=== PATIENT | male | born 1990 ===

== ENCOUNTER 2018-07-29 22:20 | Emergency (ER) | payer BC, OTHER ==
[2018-07-29 22:37] VITALS: TEMP 98.7
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
[2018-07-29] MEDS ORDERED: Tdap Vaccine 0.5 ml Vial (10-64 yrs) IM ONE (23:38)
[2018-07-29] MEDS: Lidocaine 1% Inj (20ml) IJ ONE (23:39)
[2018-07-29] MEDS: Tdap Vaccine 0.5 ml Vial (10-64 yrs) IM ONE (23:40)
[2018-07-29] MEDS ORDERED: Lidocaine 1% Inj (20ml) ONE (23:40)
[2018-07-30 00:31] VITALS: BP 137/89; PULSE 90; RESP 18
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
[2018-08-01 00:43] VITALS: O2SAT 100
== END 2018-07-30 00:26 | disposition home or self-care (01) ==
LOC: H.ER 22:20
DX: S61.411A Laceration without foreign body of right hand, initial encounter (principal); W22.8XXA Striking against or struck by other objects, initial encounter; Y92.89 Other specified places as the place of occurrence of the external cause; E03.9 Hypothyroidism, unspecified
CPT/HCPCS: 12001; 73130; 90471; 90715; 96372; 99283; J1885

== ENCOUNTER 2018-08-01 12:45 | Inpatient (IN) | payer BC, OTHER ==
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
[2018-08-01] MEDS ORDERED: Piperacillin/Tazobact 3.375 GM in Sodium Chloride 0.9% 100 ML IVPB STA (14:58)
[2018-08-01 15:03] LABS: BASO % 0.6 % (0.0-2.0); EOS # 0.1 K/uL (0.0-0.7); EOS % 1.2 % (0.0-4.0); HEMOGLOBIN 13.7 g/dL (12.0-18.0); LYMPH # 1.2 K/uL (1.0-4.3); LYMPH % 15.4 % (20.0-40.0); MEAN CELL VOLUME 87.8 fl (80.0-94.0); MEAN CORPUSCULAR HEMOGLOBIN 29.1 pg (27.0-31.0); MEAN CORPUSCULAR HGB CONC 33.1 g/dL (33.0-37.0); MEAN PLATELET VOLUME 9.6 fl (7.2-11.7); MONO # 0.7 K/uL (0.0-0.8); MONO % 8.7 % (0.0-10.0); NEUT # 5.8 K/uL (1.8-7.0); NEUT % 74.1 % (50.0-75.0); RBC 4.7 Mil/uL (4.40-5.90); RED CELL DISTRIBUTION WIDTH 14.2 % (11.5-14.5); WHITE BLOOD COUNT 7.9 K/uL (4.8-10.8)
[2018-08-01 15:12] LABS: BLOOD UREA NITROGEN 9 mg/dl (9-20); CALCIUM 9.1 mg/dL (8.4-10.2); GFR NON-AFRICAN AMERICAN > 60
[2018-08-01] MEDS ORDERED: Piperacillin/Tazobact 3.375 gm Inj IVPB ONE (15:59)
[2018-08-01] MEDS ORDERED: Vancomycin 1 g Inj ONE (17:30)
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
[2018-08-01 19:50] VITALS: BMI 40.1
[2018-08-01] MEDS ORDERED: Piperacillin/Tazobact 3.375 GM in Sodium Chloride 0.9% 100 ML IVPB SCH (22:15)
[2018-08-02] MEDS: Sodium Chloride 0.9% 1,000 ML IV SCH ×2 (00:57→04:45)
[2018-08-02] MEDS: Piperacillin/Tazobact 3.375 GM in Sodium Chloride 0.9% 100 ML IVPB SCH ×3 (01:04→17:13)
[2018-08-02] MEDS: Enoxaparin 40 mg Syringe SC SCH ×2 (09:02→17:12)
[2018-08-02] MEDS: Multivitamin With Minerals Tab PO SCH (09:02)
[2018-08-02] MEDS ORDERED: Povidone Iodine Topical 10% Sol ONE (09:49)
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
--- NOTE | 2018-08-02 11:55 | CT ---
Date of service: 08/02/2018 PROCEDURE: CT right upper extremity HISTORY: CT hand and wrist without contrast COMPARISON: 2018. X-rays right hand TECHNIQUE: 1.25 mm axial acquisition and display. Coronal and sagittal reconstructions. Radiation dosimetry DLP (mGy-cm) 270.82. FINDINGS: Redemonstration fracture proximal aspect right 5th metacarpal. The fracture is comminuted. The fracture does not extend to the articular surface. Soft tissue swelling attests to the acuity of the fracture. The fracture displays 40 of palm are angulation. IMPRESSION: Acute fracture proximal right 5th metacarpal as described above.
[2018-08-02] MEDS ORDERED: Bacitracin Ointment 30 GM TUBE ONE (12:44)
[2018-08-02] MEDS ORDERED: Succinylcholine Chloride 20 mg/ml Syr (5 ml) IV ONE (12:45)
[2018-08-02] MEDS ORDERED: Midazolam 2 MG/2 ML VIAL ONE (12:46)
[2018-08-02] MEDS ORDERED: Lidocaine 4% (Laryng-O-Jet) Kit MM ONE (12:46)
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
[2018-08-02] MEDS ORDERED: Rocuronium 10 mg/ml (5 ml) ONE (13:30)
[2018-08-02] MEDS ORDERED: Lactated Ringer's 1,000 ML IV ONE (14:00)
[2018-08-02] MEDS ORDERED: Neostigmine 1:1000 (1 mg/ml) Inj ONE (14:28)
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
[2018-08-02] MEDS ORDERED: HYDROmorphone 0.5 mg/0.5 ml ISec IVP PRN (14:57)
--- NOTE | 2018-08-02 14:59 | CP.PCM.PCO ---
Physician Communication Note - Physician Communication Note Physician Communication Note: Plan for take back to the OR on Saturday w/ Dr. Gregorio for defintive closure
--- NOTE | 2018-08-02 17:00 | RAD ---
Date of service: 08/02/2018 PROCEDURE: Fluoroscopy up to 1 hr. HISTORY: FLUOROSCOPY COMPARISON: None TECHNIQUE: Standard protocol for this study/examination. FINDINGS: Total fluoroscopic time (continuous mode) utilized during the procedure 6.8 seconds. Total exam DLP: 0.21 (mGy). IMPRESSION: Less than 1 hr fluoroscopic assistance provided during performance of the procedure.
[2018-08-02] MEDS: Acetaminophen-Codeine 300/30 mg Tab PO PRN ×2 (17:17→23:11)
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
[2018-08-02] MEDS: Lactated Ringer's 1,000 ML IV SCH (23:00)
[2018-08-03] MEDS: Piperacillin/Tazobact 3.375 GM in Sodium Chloride 0.9% 100 ML IVPB SCH ×3 (01:45→17:44)
[2018-08-03] MEDS: Lactated Ringer's 1,000 ML IV SCH ×4 (04:36→23:00)
[2018-08-03 06:55] LABS: HEMOGLOBIN 12.4 g/dL (12.0-18.0); MEAN CELL VOLUME 87.3 fl (80.0-94.0); MEAN CORPUSCULAR HEMOGLOBIN 29.6 pg (27.0-31.0); MEAN CORPUSCULAR HGB CONC 33.9 g/dL (33.0-37.0); RBC 4.2 Mil/uL (4.40-5.90); RED CELL DISTRIBUTION WIDTH 13.9 % (11.5-14.5); WHITE BLOOD COUNT 5.9 K/uL (4.8-10.8)
[2018-08-03 07:11] LABS: ALB/GLOB RATIO 1.2 (1.0-2.1); ALBUMIN 3.8 g/dL (3.5-5.0); ALT/SGPT 39 U/L (21-72); AST/SGOT 35 U/L (17-59); BLOOD UREA NITROGEN 10 mg/dl (9-20); CALCIUM 8.8 mg/dL (8.4-10.2); GFR NON-AFRICAN AMERICAN > 60
[2018-08-03] MEDS: Multivitamin With Minerals Tab PO SCH (09:32)
[2018-08-03] MEDS: Enoxaparin 40 mg Syringe SC SCH (09:32)
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
--- NOTE | 2018-08-03 12:07 | PN ---
DATE: 08/03/2018 SUBJECTIVE: The patient seen and examined. Interim events noted. Consults noted and appreciated. Orthopedic intervention noted and appreciated. The patient underwent surgery yesterday, tolerated surgery well without any complication. The patient feels better. His pain decreased, movement improved. No new complaints of chest pain or shortness of breath. PHYSICAL EXAMINATION: GENERAL: The patient is in no acute distress. VITAL SIGNS: Stable. HEART: S1 and S2, normal and regular. LUNGS: Good bilateral air exchange. ABDOMEN: Soft and nontender. EXTREMITIES: Right extremity is under surgical dressing and cast. No sign of distal neurological compromise. The patient is moving fingers much better than yesterday. Otherwise, the patient has no edema. No calf swelling. No tenderness. No acute ischemia. CENTRAL NERVOUS SYSTEM: Exam is essentially unchanged. DIAGNOSTIC DATA: Available diagnostic data reviewed. ASSESSMENT AND PLAN: Overall, the patient is improving. The patient might undergo surgery I think to follow for the fracture . Sarwat Venegas MD
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
[2018-08-03] MEDS ORDERED: Tetanus/Diphtheria Toxoids 0.5 ml Syringe IM ONE (13:37)
[2018-08-03] MEDS: Acetaminophen-Codeine 300/30 mg Tab PO PRN (20:30)
[2018-08-03 22:38] LABS: URINE BILIRUBIN NEGATIVE (NEGATIVE); URINE BLOOD NEGATIVE (NEGATIVE); URINE CLARITY CLEAR (Clear); URINE COLOR STRAW (YELLOW); URINE GLUCOSE (UA) NEG (NEGATIVE); URINE LEUKOCYTE ESTERASE NEG Leu/uL (Negative); URINE PROTEIN NEGATIVE (NEGATIVE); URINE UROBILINOGEN 0.2-1.0 mg/dL (0.2-1.0)
[2018-08-04] MEDS: Piperacillin/Tazobact 3.375 GM in Sodium Chloride 0.9% 100 ML IVPB SCH ×3 (00:04→16:07)
[2018-08-04] MEDS: Lactated Ringer's 1,000 ML IV SCH ×6 (06:14→23:00)
[2018-08-04 06:25] LABS: HEMOGLOBIN 13.8 g/dL (12.0-18.0); MEAN CELL VOLUME 86.4 fl (80.0-94.0); MEAN CORPUSCULAR HEMOGLOBIN 29.6 pg (27.0-31.0); MEAN CORPUSCULAR HGB CONC 34.3 g/dL (33.0-37.0); RBC 4.66 Mil/uL (4.40-5.90); RED CELL DISTRIBUTION WIDTH 13.7 % (11.5-14.5); WHITE BLOOD COUNT 5.5 K/uL (4.8-10.8)
[2018-08-04 06:32] LABS: PROTHROMBIN TIME 11.6 Seconds (9.8-13.1)
[2018-08-04 06:34] LABS: PARTIAL THROMBOPLASTIN TIME 34.9 Seconds (25.6-37.1)
[2018-08-04 06:40] LABS: ALB/GLOB RATIO 1.3 (1.0-2.1); ALBUMIN 4.1 g/dL (3.5-5.0); ALT/SGPT 47 U/L (21-72); AST/SGOT 37 U/L (17-59); BLOOD UREA NITROGEN 10 mg/dl (9-20); CALCIUM 9.3 mg/dL (8.4-10.2); GFR NON-AFRICAN AMERICAN > 60
--- NOTE | 2018-08-04 08:04 | CP.PCM.PCO ---
Physician Communication Note - Physician Communication Note Physician Communication Note: Patient admitted and taken to the OR by Dr. Gregorio Assessment & Plan - Assessment and Plan (Free Text) Assessment: Patient was admitted overnight Saturday and seen by me and the resident. He has a draining wound and was supposed to start on warm soapoy soaks. He was then taken to the OR [place] by Dr. Gregorio. He does nto need 2 surgeons following him for a superficial hand wound and metacarpal base fracture. Patient should follow up after discharge with Dr. Gregorio. Will cancel office visit for later this week.
[2018-08-04] MEDS ORDERED: Bacitracin Ointment 30 GM TUBE ONE ×2 (08:14→08:20)
[2018-08-04] MEDS: Multivitamin With Minerals Tab PO SCH (08:15)
[2018-08-04] MEDS ORDERED: Propofol 10 mg/ml Inj (20 ML) ONE (08:16)
[2018-08-04] MEDS ORDERED: Bupivacaine HCl 0.5% PF (30 ml) Inj ONE (08:18)
[2018-08-04] MEDS ORDERED: Lidocaine 2% Inj (20ml) ONE (08:19)
[2018-08-04] MEDS ORDERED: Lactated Ringer's 1,000 ML IV ONE ×2 (08:40→10:29)
[2018-08-04] MEDS ORDERED: Piperacillin/Tazobact 3.375 gm Inj IVPB ONE (08:45)
[2018-08-04] MEDS ORDERED: Vancomycin 1 g Inj IVPB ONE (08:55)
[2018-08-04] MEDS ORDERED: Sevoflurane - Inhalation Anesthetic Liq (250 ml) ONE (08:59)
[2018-08-04] MEDS ORDERED: ePHEDrine 50 mg/ml Inj ONE (09:20)
[2018-08-04] MEDS ORDERED: Oxycodone/Acetaminophen 5/325 mg Tab PO PRN (11:27)
[2018-08-04] MEDS: HYDROmorphone 0.5 mg/0.5 ml ISec IVP PRN ×4 (11:40→13:40)
--- NOTE | 2018-08-04 11:48 | CP.PCM.PN ---
Subjective - Date & Time of Evaluation Date of Evaluation: 08/04/18 Time of Evaluation: 08:00 - Subjective Subjective: events noted IV rx in progress Objective - Vital Signs/Intake and Output Vital Signs (last 24 hours): Temp Pulse Resp BP Pulse Ox 98.2 F 86 20 152/91 H 99 08/04/18 08:05 08/04/18 08:05 08/04/18 08:05 08/04/18 08:05 08/04/18 08:05 Intake and Output: 08/04/18 08/04/18 06:59 18:59 Intake Total 1500 Balance 1500 - Medications Medications: Current Medications Acetaminophen (Tylenol 325mg Tab) 650 mg PO Q4 PRN PRN Reason: Pain, Mild (1-3) Acetaminophen/Codeine Phosphate (Tylenol/Codeine 300 Mg/30 Mg) 1 tab PO Q6 PRN PRN Reason: Pain, moderate (4-7) Last Admin: 08/03/18 20:30 Dose: 1 tab Enoxaparin Sodium (Lovenox) 40 mg SC DAILY [facility]; Protocol Last Admin: 08/03/18 09:32 Dose: 40 mg Hydromorphone HCl (Dilaudid) 0.5 mg IVP Q5M PRN PRN Reason: Pain, moderate (4-7) Stop: 08/04/18 13:28 Vancomycin HCl 1 gm/ Sodium (Chloride) 250 mls @ 166.667 mls/hr IVPB Q12H [facility]; Protocol Last Admin: 08/04/18 06:27 Dose: 166.667 mls/hr Piperacillin Sod/Tazobactam (Sod 3.375 gm/ Sodium Chloride) 100 mls @ 100 mls/hr IVPB Q8 [facility]; Protocol Last Admin: 08/04/18 08:16 Dose: Not Given Lactated Ringer's (Lactated Ringer's) 1,000 mls @ 125 mls/hr IV .Q8H [facility] Last Admin: 08/04/18 06:30 Dose: Not Given Lactated Ringer's (Lactated Ringer's) 1,000 mls @ 100 mls/hr IV .Q10H [facility] Ketorolac Tromethamine (Toradol) 30 mg IVP ONCE PRN PRN Reason: Pain, Mild (1-3) Stop: 08/04/18 13:28 Levothyroxine Sodium (Synthroid) 25 mcg PO DAILY@0630 [facility] Morphine Sulfate (Morphine) 2 mg IVP Q4 PRN PRN Reason: Pain, severe (8-10) Multivitamins/Minerals (Therapeutic-M Tab) 1 tab PO DAILY [facility] Last Admin: 08/04/18 08:15 Dose: Not Given Ondansetron HCl (Zofran Inj) 4 mg IVP Q4 PRN PRN Reason: Nausea/Vomiting Ondansetron HCl (Zofran Inj) 4 mg IVP ONCE PRN PRN Reason: Nausea/Vomiting Stop: 08/04/18 13:29 Oxycodone/Acetaminophen (Percocet 5/325 Mg Tab) 1 tab PO Q4 PRN PRN Reason: Pain, Mild (1-3) Stop: 08/07/18 11:28 Oxycodone/Acetaminophen (Percocet 5/325 Mg Tab) 2 tab PO Q4 PRN PRN Reason: Pain, moderate (4-7) Stop: 08/07/18 11:28 Tramadol HCl (Ultram) 50 mg PO Q6 PRN PRN Reason: Pain, severe (8-10) Last Admin: 08/03/18 15:06 Dose: 50 mg - Labs Labs: 08/04/18 06:20 08/04/18 06:20 PT 11.6 Seconds (9.8-13.1) 08/04/18 06:20 INR 1.0 08/04/18 06:20 APTT 34.9 Seconds (25.6-37.1) 08/04/18 06:20 - Constitutional Appears: Well - Head Exam Head Exam: ATRAUMATIC, NORMAL INSPECTION, NORMOCEPHALIC - Eye Exam Eye Exam: EOMI, Normal appearance, PERRL Pupil Exam: NORMAL ACCOMODATION, PERRL - ENT Exam ENT Exam: Mucous Membranes Moist, Normal Exam - Neck Exam Neck Exam: Full ROM, Normal Inspection. absent: Lymphadenopathy - Respiratory Exam Respiratory Exam: Clear to Ausculation Bilateral, NORMAL BREATHING PATTERN - Cardiovascular Exam Cardiovascular Exam: REGULAR RHYTHM, +S1, +S2. absent: Murmur - GI/Abdominal Exam GI & Abdominal Exam: Soft. absent: Tenderness - Rectal Exam Rectal Exam: Deferred - Exam Exam: NORMAL INSPECTION - Extremities Exam Extremities Exam: Full ROM, Normal Capillary Refill, Normal Inspection. absent: Joint Swelling, Pedal Edema - Back Exam Back Exam: NORMAL INSPECTION - Neurological Exam Neurological Exam: Alert, Awake, CN II-XII Intact, Normal Gait, Oriented x3 - Psychiatric Exam Psychiatric exam: Normal Affect, Normal Mood - Skin Skin Exam: Dry, Intact, Normal Color, Warm Assessment and Plan (1) Hand abscess Status: Acute (2) Hand laceration Status: Acute (3) Hand pain, right Status: Acute (4) Metacarpal bone fracture Status: Acute (5) Hypothyroid Status: Acute - Assessment and Plan (Free Text) Assessment: cont iv rx for 3 weeks
--- NOTE | 2018-08-04 13:55 | PN ---
DATE: 08/04/2018 SUBJECTIVE: The patient is seen and examined. Interim events noted. Consults noted and appreciated. Orthopedic consults and intervention noted and appreciated. Case was discussed with . The patient feels okay. Pain much improved. No chest pain. No shortness of breath, able to move his fingers without any restriction. PHYSICAL EXAMINATION: GENERAL: The patient is in no acute distress. VITAL SIGNS: Stable. HEART: S1 and S2, normal and regular. LUNGS: Good bilateral air exchange. ABDOMEN: Soft, nontender. EXTREMITIES: Right upper extremity is in a cast. No sign of distal neurovascular compromise. The patient has adequate movement in fingers. No edema, no calf swelling, no tenderness. CENTRAL NERVOUS SYSTEM: Essentially unchanged. DIAGNOSTIC DATA: Available diagnostic data reviewed. His lipase level remains elevated at 8.9. On further questioning, the patient is admitted having no issue with thyroid and was seen by Endocrinology, suggested CT but has stopped any followup or medication after , removed was taking some medications before. ASSESSMENT AND PLAN: Overall, the patient also now found to have hypothyroidism. The hand injury has improved well. Plan as ordered. Sarwat Veneags MD
--- NOTE | 2018-08-04 13:58 | RAD ---
PROCEDURE: Right Hand Radiographs. HISTORY: s/p R hand 5th MCP ORIF COMPARISON: Preoperative study 08/01/2018 FINDINGS: BONES: Orthopedic hardware traverses the fracture of the proximal right 5th metacarpal. Anatomic area of interest: JOINTS: Normal. No osteoarthritic changes. SOFT TISSUES: Normal. OTHER FINDINGS: None. IMPRESSION: Satisfactory postoperative status.
--- NOTE | 2018-08-04 14:03 | RAD ---
Date of service: 08/04/2018 PROCEDURE: Fluoroscopy up to 1 hr. HISTORY: RIGHT HAND (5TH FINGER) COMPARISON: Preoperative study August 01, 2018. TECHNIQUE: Total fluoroscopic time (continuous mode) utilized during the procedure 15.6 seconds. FINDINGS: Total exam DLP: 0.49 (mGy). IMPRESSION: Less than 1 hr fluoroscopic assistance provided during performance of the procedure.
--- NOTE | 2018-08-04 14:52 | PCM.SURG1 ---
Surgeon's Initial Post Op Note - Surgeon's Notes Surgeon: Darline Liner Replacer: LULU Astorga, 2nd elvira Conner Type of Anesthesia: General Endo Anesthesia Administered By: Dr Fan Pre-Operative Diagnosis: Displaced/comminuted BASE 5th metacarpal fracture R hand. s/p I+D DISTAL dorsal aspect 5th metacarpal Operative Findings: no evidence for deep sepsis distal laceration dorsal aspect 5th metacarpal. displaced/comminuted fx base 5th metacarpal Post-Operative Diagnosis: as above Operation Performed: ORIF base 5th metacarpal fracture. capsulotomy 5th carpomcp joint. debridemet distal laceration, irrigation and primary closure. allogrft bone graft to fx. applx short arm splinpositioning of fluor/interpretation of video images Specimen/Specimens Removed: karen jackson from distal laceration which had been incised and drained saturday Estimated Blood Loss: EBL {In ML}: 5 Blood Products Given: N/A Drains Used: No Drains Post-Op Condition: Fair Date of Surgery/Procedure: 08/04/18 Time of Surgery/Procedure: 09:25 (time in room /anesthesdia indcution time 8:40)
[2018-08-04] MEDS: Morphine 5 MG/ML SYRINGE IVP PRN ×2 (15:44→21:40)
[2018-08-04] MEDS: Oxycodone/Acetaminophen 5/325 mg Tab PO PRN (18:38)
--- NOTE | 2018-08-04 20:46 | OP ---
PROCEDURE DATE: 08/01/2018 PREOPERATIVE DIAGNOSES: 1. Displaced comminuted base fifth metacarpal fracture of the right hand. 2. Status post incision and drainage distal dorsal aspect, fifth metacarpal laceration. POSTOPERATIVE DIAGNOSES: 1. Displaced comminuted base fracture fifth metacarpal, right hand. 2. Status post incision and drainage distal and dorsal aspect, fifth metacarpal laceration. OPERATIVE FINDINGS: No evidence for gross deep sepsis or distal laceration on the dorsal aspect of the fifth metacarpal, displaced comminuted fracture at the base of the fifth metacarpal, certainly far away from the laceration that the patient had had. OPERATION PERFORMED: 1. Open reduction and internal fixation at the base of fifth metacarpal fracture. 2. Capsulotomy fifth metacarpal joint. 3. Debridement at distal laceration, irrigation, and primary closure. 4. Allograft, bone graft to the fracture. 5. Application of short-arm cast. 6. Positioning of fluoroscope, interpretation of video images. SURGEON: Ata Gregorio MD NETWORK DEVELOPMENT COORDINATOR: Anisa Glaser, certified registered nursing records assistant. SECOND MEDICAL SALES ASSOCIATE: Efrain Conner PA-C TYPE OF ANESTHESIA: General endotracheal anesthesia. ADMINISTERED BY: González Fan MD SPECIMENS REMOVED: Fractured callus. Cultures obtained from the distal laceration, which had been incised and drained on Saturday. ESTIMATED BLOOD LOSS: 5 mL. BLOOD PRODUCTS: No blood products given. DRAINS: No drains. POSTOPERATIVE CONDITION: Stable. TIME IN THE ROOM: Anesthesia induction time 08:40, incision time 09:25. OPERATIVE INDICATIONS: Ricardo Chan is a 27-year-old gentleman who presented to the emergency room at [facility] on Saturday evening last. The patient was evaluated by the hand service. The patient was treated, irrigated, and closed primarily. The patient returned to the hospital on Saturday. I was called on consult. I saw the patient on Saturday, took the patient to the operating room for incision and drainage and this was accomplished with aggressive irrigation and drainage. The patient has an unstable comminuted base fifth metacarpal fracture, which needs open reduction and internal fixation. After thoroughly discussing the pros, cons, risks, and benefits of the surgical approach to the patient, the possibility of mechanical failure, infection, recurrent infection, thromboembolic disease, secondary or tertiary surgery were discussed. The patient identified as Ricardo Chan, in the supine position with all bony prominence well padded. The right upper extremity was prepped and free draped in usual fashion for upper extremity surgery. The tourniquet had been applied. After exsanguinating the limb using a 4-inch Esmarch bandage, the tourniquet which had been applied was inflated to 250 mmHg. An incision was described away from the laceration incision on the dorsal ulnar aspect of the fifth metacarpal to the area of the carpometacarpal joint. The skin incision was carried down through the skin and subcutaneous tissue. Dissection was carried out very carefully and the dorsal branch of the ulnar nerve was preserved. At this point in time, the fracture was identified. There was found to be a comminuted base. A capsulotomy of the carpometacarpal joint was accomplished and this having been accomplished, the fracture was reduced and held with provisional K-wires. The fracture was curetted and debrided of healing callus. The fracture was reduced and the T-plate mini-fragment locking set was applied to the fracture. Each sequential drill hole was drilled, sounded, and the appropriate size screws were placed. The position was found to be acceptable. Again, the capsule had been opened to make sure there was no penetration of the joint with screws and this having been accomplished, the wound was thoroughly irrigated. Primary closure of the capsulotomy was accomplished with interrupted suture. Autograft and allograft bone grafting were accomplished of the fracture. The expansion deep to the extensor tendons was closed primarily. The wound was thoroughly irrigated. Attention at this point in time was centered to the distal laceration. This laceration and wound were thoroughly irrigated. Primary closure was accomplished with interrupted Vicryl and nylon. Closure of the skin was with interrupted Vicryl and nylon as well for the laceration. Verification of position was offered on AP and lateral image intensification views, and it was found to be acceptable. OPERATIVE PROCEDURES: 1. Open reduction and internal fixation of base fifth metacarpal fracture. 2. Capsulotomy of the fifth carpometacarpal joint. 3. Debridement of distal laceration, irrigation, and primary closure. 4. Allograft and bone graft. 5. Application of short-arm splint, positioning of fluoroscope, interpretation of video images. Ata Gregorio MD [facility] # [id number]
[2018-08-05] MEDS: Oxycodone/Acetaminophen 5/325 mg Tab PO PRN ×2 (00:36→08:18)
[2018-08-05] MEDS: Piperacillin/Tazobact 3.375 GM in Sodium Chloride 0.9% 100 ML IVPB SCH ×3 (00:38→16:28)
[2018-08-05] MEDS: Morphine 5 MG/ML SYRINGE IVP PRN ×3 (05:09→20:24)
[2018-08-05] MEDS: Lactated Ringer's 1,000 ML IV SCH ×3 (05:13→08:32)
[2018-08-05 06:14] LABS: HEMOGLOBIN 13.1 g/dL (12.0-18.0); MEAN CELL VOLUME 86.6 fl (80.0-94.0); MEAN CORPUSCULAR HEMOGLOBIN 29.5 pg (27.0-31.0); RBC 4.46 Mil/uL (4.40-5.90); RED CELL DISTRIBUTION WIDTH 13.8 % (11.5-14.5)
[2018-08-05 06:32] LABS: ALBUMIN 3.7 g/dL (3.5-5.0); ALT/SGPT 44 U/L (21-72); AST/SGOT 33 U/L (17-59); BLOOD UREA NITROGEN 5 mg/dl (9-20); CALCIUM 9.1 mg/dL (8.4-10.2); GFR NON-AFRICAN AMERICAN > 60
[2018-08-05] MEDS: Levothyroxine 25 MCG TAB PO SCH (07:23)
[2018-08-05] MEDS: Multivitamin With Minerals Tab PO SCH (08:23)
--- NOTE | 2018-08-05 08:38 | CP.PCM.PN ---
Subjective - Date & Time of Evaluation Date of Evaluation: 08/05/18 Time of Evaluation: 08:30 - Subjective Subjective: Patient seen and examined at bedside. Pain well controlled. Reports mild tingling to 4th digit. Denies CP/SOB/N/fever. Objective - Vital Signs/Intake and Output Vital Signs (last 24 hours): Temp Pulse Resp BP Pulse Ox 98.3 F 92 H 20 156/93 H 95 08/05/18 08:11 08/05/18 08:11 08/05/18 08:11 08/05/18 08:11 08/05/18 08:11 - Medications Medications: Current Medications Acetaminophen (Tylenol 325mg Tab) 650 mg PO Q4 PRN PRN Reason: Pain, Mild (1-3) Acetaminophen/Codeine Phosphate (Tylenol/Codeine 300 Mg/30 Mg) 1 tab PO Q6 PRN PRN Reason: Pain, moderate (4-7) Last Admin: 08/03/18 20:30 Dose: 1 tab Enoxaparin Sodium (Lovenox) 40 mg SC DAILY [facility]; Protocol Last Admin: 08/03/18 09:32 Dose: 40 mg Vancomycin HCl 1 gm/ Sodium (Chloride) 250 mls @ 166.667 mls/hr IVPB Q12H [facility]; Protocol Last Admin: 08/05/18 05:15 Dose: 166.667 mls/hr Piperacillin Sod/Tazobactam (Sod 3.375 gm/ Sodium Chloride) 100 mls @ 100 mls/hr IVPB Q8 [facility]; Protocol Last Admin: 08/05/18 00:38 Dose: 100 mls/hr Lactated Ringer's (Lactated Ringer's) 1,000 mls @ 125 mls/hr IV .Q8H [facility] Last Admin: 08/05/18 07:01 Dose: Not Given Lactated Ringer's (Lactated Ringer's) 1,000 mls @ 100 mls/hr IV .Q10H [facility] Last Admin: 08/05/18 08:32 Dose: Not Given Levothyroxine Sodium (Synthroid) 25 mcg PO DAILY@0630 [facility] Last Admin: 08/05/18 07:23 Dose: 25 mcg Morphine Sulfate (Morphine) 2 mg IVP Q4 PRN PRN Reason: Pain, severe (8-10) Last Admin: 08/05/18 05:09 Dose: 2 mg Multivitamins/Minerals (Therapeutic-M Tab) 1 tab PO DAILY [facility] Last Admin: 08/05/18 08:23 Dose: 1 tab Ondansetron HCl (Zofran Inj) 4 mg IVP Q4 PRN PRN Reason: Nausea/Vomiting Last Admin: 08/04/18 17:46 Dose: 4 mg Oxycodone/Acetaminophen (Percocet 5/325 Mg Tab) 1 tab PO Q4 PRN PRN Reason: Pain, Mild (1-3) Stop: 08/07/18 11:28 Oxycodone/Acetaminophen (Percocet 5/325 Mg Tab) 2 tab PO Q4 PRN PRN Reason: Pain, moderate (4-7) Stop: 08/07/18 11:28 Last Admin: 08/05/18 08:18 Dose: 2 tab Tramadol HCl (Ultram) 50 mg PO Q6 PRN PRN Reason: Pain, severe (8-10) Last Admin: 08/03/18 15:06 Dose: 50 mg - Labs Labs: 08/05/18 06:00 08/05/18 06:00 PT 11.6 Seconds (9.8-13.1) 08/04/18 06:20 INR 1.0 08/04/18 06:20 APTT 34.9 Seconds (25.6-37.1) 08/04/18 06:20 - Extremities Exam Additional comments: R hand: short arm splint intact sensation MN/UN/RN intact motor MN/UN/RN intact 2 sec cap refill all fingers Assessment and Plan (1) Fracture of fifth metacarpal bone Assessment & Plan: POD #1 s/p 5th MCP fx ORIF and distal wound I&D -Strict elevation of R hand -IV abx as per Dr. Monsivais, Dr. Gregorio recommends 3 weeks of IV abx -keep immobilized in short arm splint, NWB RUE -ASA 81 mg BID -orthopedically clear for d/w to home today -f/u in office within 7-10 days -above d/w Dr. Gregorio in agreement Status: Acute
--- NOTE | 2018-08-05 08:39 | CP.PCM.PN ---
Subjective - Date & Time of Evaluation Date of Evaluation: 08/05/18 Time of Evaluation: 08:15 - Subjective Subjective: S- Pt markedly imporved/ no complaints today/ sometingling in 4th(?/5th fingers Objective - Vital Signs/Intake and Output Vital Signs (last 24 hours): Temp Pulse Resp BP Pulse Ox 98.3 F 92 H 20 156/93 H 95 08/05/18 08:11 08/05/18 08:11 08/05/18 08:11 08/05/18 08:11 08/05/18 08:11 - Medications Medications: Current Medications Acetaminophen (Tylenol 325mg Tab) 650 mg PO Q4 PRN PRN Reason: Pain, Mild (1-3) Acetaminophen/Codeine Phosphate (Tylenol/Codeine 300 Mg/30 Mg) 1 tab PO Q6 PRN PRN Reason: Pain, moderate (4-7) Last Admin: 08/03/18 20:30 Dose: 1 tab Enoxaparin Sodium (Lovenox) 40 mg SC DAILY [facility]; Protocol Last Admin: 08/03/18 09:32 Dose: 40 mg Vancomycin HCl 1 gm/ Sodium (Chloride) 250 mls @ 166.667 mls/hr IVPB Q12H [facility]; Protocol Last Admin: 08/05/18 05:15 Dose: 166.667 mls/hr Piperacillin Sod/Tazobactam (Sod 3.375 gm/ Sodium Chloride) 100 mls @ 100 mls/hr IVPB Q8 [facility]; Protocol Last Admin: 08/05/18 00:38 Dose: 100 mls/hr Lactated Ringer's (Lactated Ringer's) 1,000 mls @ 125 mls/hr IV .Q8H [facility] Last Admin: 08/05/18 07:01 Dose: Not Given Lactated Ringer's (Lactated Ringer's) 1,000 mls @ 100 mls/hr IV .Q10H [facility] Last Admin: 08/05/18 08:32 Dose: Not Given Levothyroxine Sodium (Synthroid) 25 mcg PO DAILY@0630 [facility] Last Admin: 08/05/18 07:23 Dose: 25 mcg Morphine Sulfate (Morphine) 2 mg IVP Q4 PRN PRN Reason: Pain, severe (8-10) Last Admin: 08/05/18 05:09 Dose: 2 mg Multivitamins/Minerals (Therapeutic-M Tab) 1 tab PO DAILY [facility] Last Admin: 08/05/18 08:23 Dose: 1 tab Ondansetron HCl (Zofran Inj) 4 mg IVP Q4 PRN PRN Reason: Nausea/Vomiting Last Admin: 08/04/18 17:46 Dose: 4 mg Oxycodone/Acetaminophen (Percocet 5/325 Mg Tab) 1 tab PO Q4 PRN PRN Reason: Pain, Mild (1-3) Stop: 08/07/18 11:28 Oxycodone/Acetaminophen (Percocet 5/325 Mg Tab) 2 tab PO Q4 PRN PRN Reason: Pain, moderate (4-7) Stop: 08/07/18 11:28 Last Admin: 08/05/18 08:18 Dose: 2 tab Tramadol HCl (Ultram) 50 mg PO Q6 PRN PRN Reason: Pain, severe (8-10) Last Admin: 08/03/18 15:06 Dose: 50 mg - Labs Labs: 08/05/18 06:00 08/05/18 06:00 PT 11.6 Seconds (9.8-13.1) 08/04/18 06:20 INR 1.0 08/04/18 06:20 APTT 34.9 Seconds (25.6-37.1) 08/04/18 06:20 - Additional Findings Additional findings: Objectivge systemic- wnl no signs of local or systemic sepsis Musculoskeletal stance/gait- defrred split R upper ext intact N/V intact no gross p[rogressive deficits post op xrays- reval acceptable construct position Assessment and Plan - Assessment and Plan (Free Text) Assessment: A- s/p ORIF base 5th metacarpal fx P- d/c on IV abios as per DR Gonzalez- RTOP SURGICAL ASST x 1 wk
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
[2018-08-05] MEDS ORDERED: Lidocaine Hydrochloride 5 ML INJ ONE (10:25)
--- NOTE | 2018-08-05 11:35 | PCM.SURG1 ---
Surgeon's Initial Post Op Note - Surgeon's Notes Surgeon: Abigail Bait Packer: None Type of Anesthesia: Local Pre-Operative Diagnosis: Infection Operative Findings: Patent right basilic vein Post-Operative Diagnosis: Infection Operation Performed: Right basilic vein 45cm SL 4F PICC placed with the tip in the RA Specimen/Specimens Removed: None Estimated Blood Loss: EBL {In ML}: 1 Date of Surgery/Procedure: 08/05/18 Time of Surgery/Procedure: 11:00
[2018-08-05] MEDS: Acetaminophen-Codeine 300/30 mg Tab PO PRN (11:43)
--- NOTE | 2018-08-05 12:12 | CP.PCM.PN ---
Subjective - Date & Time of Evaluation Date of Evaluation: 08/05/18 Time of Evaluation: 07:00 - Subjective Subjective: afeb s/p ORIF right hand picc in place Objective - Vital Signs/Intake and Output Vital Signs (last 24 hours): Temp Pulse Resp BP Pulse Ox 98.6 F 80 16 156/82 H 99 08/05/18 11:15 08/05/18 11:15 08/05/18 11:15 08/05/18 11:15 08/05/18 11:15 - Medications Medications: Current Medications Acetaminophen (Tylenol 325mg Tab) 650 mg PO Q4 PRN PRN Reason: Pain, Mild (1-3) Acetaminophen/Codeine Phosphate (Tylenol/Codeine 300 Mg/30 Mg) 1 tab PO Q6 PRN PRN Reason: Pain, moderate (4-7) Last Admin: 08/05/18 11:43 Dose: 1 tab Enoxaparin Sodium (Lovenox) 40 mg SC DAILY [facility]; Protocol Last Admin: 08/03/18 09:32 Dose: 40 mg Vancomycin HCl 1 gm/ Sodium (Chloride) 250 mls @ 166.667 mls/hr IVPB Q12H [facility]; Protocol Last Admin: 08/05/18 05:15 Dose: 166.667 mls/hr Piperacillin Sod/Tazobactam (Sod 3.375 gm/ Sodium Chloride) 100 mls @ 100 mls/hr IVPB Q8 [facility]; Protocol Last Admin: 08/05/18 11:31 Dose: 100 mls/hr Levothyroxine Sodium (Synthroid) 25 mcg PO DAILY@0630 [facility] Last Admin: 08/05/18 07:23 Dose: 25 mcg Morphine Sulfate (Morphine) 2 mg IVP Q4 PRN PRN Reason: Pain, severe (8-10) Last Admin: 08/05/18 05:09 Dose: 2 mg Multivitamins/Minerals (Therapeutic-M Tab) 1 tab PO DAILY [facility] Last Admin: 08/05/18 08:23 Dose: 1 tab Ondansetron HCl (Zofran Inj) 4 mg IVP Q4 PRN PRN Reason: Nausea/Vomiting Last Admin: 08/04/18 17:46 Dose: 4 mg Oxycodone/Acetaminophen (Percocet 5/325 Mg Tab) 1 tab PO Q4 PRN PRN Reason: Pain, Mild (1-3) Stop: 08/07/18 11:28 Oxycodone/Acetaminophen (Percocet 5/325 Mg Tab) 2 tab PO Q4 PRN PRN Reason: Pain, moderate (4-7) Stop: 08/07/18 11:28 Last Admin: 08/05/18 08:18 Dose: 2 tab Tramadol HCl (Ultram) 50 mg PO Q6 PRN PRN Reason: Pain, severe (8-10) Last Admin: 08/03/18 15:06 Dose: 50 mg - Labs Labs: 08/05/18 06:00 08/05/18 06:00 PT 11.6 Seconds (9.8-13.1) 08/04/18 06:20 INR 1.0 08/04/18 06:20 APTT 34.9 Seconds (25.6-37.1) 08/04/18 06:20 - Constitutional Appears: Non-toxic, Chronically Ill - Head Exam Head Exam: NORMOCEPHALIC - Eye Exam Eye Exam: absent: Scleral icterus - ENT Exam ENT Exam: Mucous Membranes Dry - Neck Exam Neck Exam: absent: Lymphadenopathy - Respiratory Exam Respiratory Exam: Decreased Breath Sounds - Cardiovascular Exam Cardiovascular Exam: REGULAR RHYTHM - GI/Abdominal Exam GI & Abdominal Exam: Distended - Rectal Exam Rectal Exam: Deferred - Exam Exam: NORMAL INSPECTION - Extremities Exam Extremities Exam: absent: Pedal Edema - Back Exam Back Exam: absent: CVA tenderness (L), CVA tenderness (R), paraspinal tenderness - Neurological Exam Neurological Exam: Alert, Awake, CN II-XII Intact, Oriented x3 Neuro motor strength exam: Left Upper Extremity: 5, Right Upper Extremity: 5, Left Lower Extremity: 5, Right Lower Extremity: 5 - Psychiatric Exam Psychiatric exam: Normal Mood - Skin Skin Exam: Dry Additional comments: hand in cast Assessment and Plan (1) Hand abscess Status: Acute (2) Hand laceration Status: Acute (3) Hand pain, right Status: Acute (4) Metacarpal bone fracture Status: Acute (5) Hypothyroid Status: Acute - Assessment and Plan (Free Text) Assessment: s/p orif right 5th metacarpal bone s/p drainage pus from right hand s/p traumatic displaced fx right 5th meetacarpal to cont IV antibiotics for 3 weeks follow up with Dr Gregorio ( ortho)
[2018-08-06] MEDS: Oxycodone/Acetaminophen 5/325 mg Tab PO PRN ×2 (00:45→10:03)
[2018-08-06] MEDS: Piperacillin/Tazobact 3.375 GM in Sodium Chloride 0.9% 100 ML IVPB SCH ×2 (00:46→09:51)
[2018-08-06 06:28] LABS: BASO % 0.7 % (0.0-2.0); EOS # 0.1 K/uL (0.0-0.7); HEMOGLOBIN 13.7 g/dL (12.0-18.0); LYMPH # 2.2 K/uL (1.0-4.3); LYMPH % 34.3 % (20.0-40.0); MEAN CELL VOLUME 86.9 fl (80.0-94.0); MEAN CORPUSCULAR HEMOGLOBIN 29.3 pg (27.0-31.0); MEAN CORPUSCULAR HGB CONC 33.7 g/dL (33.0-37.0); MEAN PLATELET VOLUME 8.8 fl (7.2-11.7); MONO # 0.7 K/uL (0.0-0.8); MONO % 10.3 % (0.0-10.0); NEUT # 3.4 K/uL (1.8-7.0); NEUT % 52.7 % (50.0-75.0); NRBC % 0.1 % (0.0-0.0); RBC 4.67 Mil/uL (4.40-5.90); RED CELL DISTRIBUTION WIDTH 14.1 % (11.5-14.5); WHITE BLOOD COUNT 6.3 K/uL (4.8-10.8)
[2018-08-06 06:48] LABS: ALB/GLOB RATIO 1.3 (1.0-2.1); ALBUMIN 4.4 g/dL (3.5-5.0); ALT/SGPT 41 U/L (21-72); AST/SGOT 45 U/L (17-59); BLOOD UREA NITROGEN 7 mg/dl (9-20); CALCIUM 9.6 mg/dL (8.4-10.2); GFR NON-AFRICAN AMERICAN > 60
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
[2018-08-06] MEDS: Levothyroxine 25 MCG TAB PO SCH (08:26)
[2018-08-06] MEDS: Multivitamin With Minerals Tab PO SCH (09:57)
[2018-08-06] MEDS ORDERED: cefTRIAXone 2 GM in Sodium Chloride 0.9% 100 ML IVPB SCH (13:15)
--- NOTE | 2018-08-06 13:34 | CP.PCM.PCO ---
Physician Communication Note - Physician Communication Note Physician Communication Note: Per , pt can be d/c'd on Vanco 1g q12 & Rocephin 2g daily;Rx given
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
--- NOTE | 2018-08-06 14:06 | CP.PCM.PN ---
Subjective - Date & Time of Evaluation Date of Evaluation: 08/06/18 Time of Evaluation: 11:00 - Subjective Subjective: arrangements made for iv rx Objective - Vital Signs/Intake and Output Vital Signs (last 24 hours): Temp Pulse Resp BP Pulse Ox 97.8 F 88 19 128/79 97 08/06/18 08:31 08/06/18 08:31 08/06/18 08:31 08/06/18 08:31 08/06/18 08:31 - Medications Medications: Current Medications Acetaminophen (Tylenol 325mg Tab) 650 mg PO Q4 PRN PRN Reason: Pain, Mild (1-3) Last Admin: 08/05/18 17:22 Dose: 650 mg Aspirin (Ecotrin) 81 mg PO Q12 [facility] Last Admin: 08/06/18 09:57 Dose: 81 mg Enoxaparin Sodium (Lovenox) 40 mg SC DAILY [facility]; Protocol Last Admin: 08/03/18 09:32 Dose: 40 mg Vancomycin HCl 1 gm/ Sodium (Chloride) 250 mls @ 166.667 mls/hr IVPB Q12H [facility]; Protocol Last Admin: 08/06/18 04:41 Dose: 166.667 mls/hr Ceftriaxone Sodium 2 gm/ (Sodium Chloride) 100 mls @ 100 mls/hr IVPB DAILY [facility]; Protocol Levothyroxine Sodium (Synthroid) 25 mcg PO DAILY@0630 [facility] Last Admin: 08/06/18 08:26 Dose: 25 mcg Morphine Sulfate (Morphine) 2 mg IVP Q4 PRN PRN Reason: Pain, severe (8-10) Last Admin: 08/05/18 20:24 Dose: 2 mg Multivitamins/Minerals (Therapeutic-M Tab) 1 tab PO DAILY [facility] Last Admin: 08/06/18 09:57 Dose: 1 tab Ondansetron HCl (Zofran Inj) 4 mg IVP Q4 PRN PRN Reason: Nausea/Vomiting Last Admin: 08/04/18 17:46 Dose: 4 mg Oxycodone/Acetaminophen (Percocet 5/325 Mg Tab) 2 tab PO Q4 PRN PRN Reason: Pain, moderate (4-7) Stop: 08/07/18 11:28 Last Admin: 08/06/18 10:03 Dose: 2 tab - Labs Labs: 08/06/18 06:00 08/06/18 06:00 PT 11.6 Seconds (9.8-13.1) 08/04/18 06:20 INR 1.0 08/04/18 06:20 APTT 34.9 Seconds (25.6-37.1) 08/04/18 06:20 - Constitutional Appears: Well - Head Exam Head Exam: ATRAUMATIC, NORMAL INSPECTION, NORMOCEPHALIC - Eye Exam Eye Exam: EOMI, Normal appearance, PERRL Pupil Exam: NORMAL ACCOMODATION, PERRL - ENT Exam ENT Exam: Mucous Membranes Moist, Normal Exam - Neck Exam Neck Exam: Full ROM, Normal Inspection. absent: Lymphadenopathy - Respiratory Exam Respiratory Exam: Clear to Ausculation Bilateral, NORMAL BREATHING PATTERN - Cardiovascular Exam Cardiovascular Exam: REGULAR RHYTHM, +S1, +S2. absent: Murmur - GI/Abdominal Exam GI & Abdominal Exam: Soft, Normal Bowel Sounds. absent: Tenderness - Rectal Exam Rectal Exam: NORMAL INSPECTION - Exam Exam: Circumcision, NORMAL INSPECTION External exam: NORMAL EXTERNAL EXAM Speculum exam: NORMAL SPECULUM EXAM Bimanual exam: NORMAL BIMANUAL EXAM - Extremities Exam Extremities Exam: Full ROM, Normal Capillary Refill. absent: Joint Swelling, Normal Inspection, Pedal Edema Additional comments: hand in cast fingers warm - Back Exam Back Exam: NORMAL INSPECTION - Neurological Exam Neurological Exam: Alert, Awake, CN II-XII Intact, Normal Gait, Oriented x3 - Psychiatric Exam Psychiatric exam: Normal Affect, Normal Mood - Skin Skin Exam: Dry, Intact, Normal Color, Warm Assessment and Plan (1) Hand abscess Status: Acute (2) Hand laceration Status: Acute (3) Hand pain, right Status: Acute (4) Metacarpal bone fracture Status: Acute (5) Hypothyroid Status: Chronic - Assessment and Plan (Free Text) Assessment: cont iv rx for 3 weeks
--- NOTE | 2018-08-06 15:36 | CP.PCM.PN ---
Subjective - Date & Time of Evaluation Date of Evaluation: 08/06/18 Time of Evaluation: 14:30 - Subjective Subjective: Patient seen and examined at bedside comfortable. Pain much improved and tolerable. Stay extended due to change in disposition from [facility] to home, complicated by preparing home services for IV abx infusion. No other complaints. Objective - Vital Signs/Intake and Output Vital Signs (last 24 hours): Temp Pulse Resp BP Pulse Ox 97.8 F 88 19 128/79 97 08/06/18 13:00 08/06/18 13:00 08/06/18 13:00 08/06/18 13:00 08/06/18 13:00 - Medications Medications: Current Medications Acetaminophen (Tylenol 325mg Tab) 650 mg PO Q4 PRN PRN Reason: Pain, Mild (1-3) Last Admin: 08/05/18 17:22 Dose: 650 mg Aspirin (Ecotrin) 81 mg PO Q12 [facility] Last Admin: 08/06/18 09:57 Dose: 81 mg Enoxaparin Sodium (Lovenox) 40 mg SC DAILY [facility]; Protocol Last Admin: 08/03/18 09:32 Dose: 40 mg Vancomycin HCl 1 gm/ Sodium (Chloride) 250 mls @ 166.667 mls/hr IVPB Q12H [facility]; Protocol Last Admin: 08/06/18 04:41 Dose: 166.667 mls/hr Ceftriaxone Sodium 2 gm/ (Sodium Chloride) 100 mls @ 100 mls/hr IVPB DAILY [facility]; Protocol Last Admin: 08/06/18 15:04 Dose: 100 mls/hr Levothyroxine Sodium (Synthroid) 25 mcg PO DAILY@0630 [facility] Last Admin: 08/06/18 08:26 Dose: 25 mcg Morphine Sulfate (Morphine) 2 mg IVP Q4 PRN PRN Reason: Pain, severe (8-10) Last Admin: 08/05/18 20:24 Dose: 2 mg Multivitamins/Minerals (Therapeutic-M Tab) 1 tab PO DAILY [facility] Last Admin: 08/06/18 09:57 Dose: 1 tab Ondansetron HCl (Zofran Inj) 4 mg IVP Q4 PRN PRN Reason: Nausea/Vomiting Last Admin: 08/04/18 17:46 Dose: 4 mg Oxycodone/Acetaminophen (Percocet 5/325 Mg Tab) 2 tab PO Q4 PRN PRN Reason: Pain, moderate (4-7) Stop: 08/07/18 11:28 Last Admin: 08/06/18 10:03 Dose: 2 tab - Labs Labs: 08/06/18 06:00 08/06/18 06:00 PT 11.6 Seconds (9.8-13.1) 08/04/18 06:20 INR 1.0 08/04/18 06:20 APTT 34.9 Seconds (25.6-37.1) 08/04/18 06:20 - Extremities Exam Additional comments: RUE: hand elevated short arm splint intact sensation MN/UN/RN intact motor intact MN/UN/RN 2 sec cap refill all fingers Assessment and Plan (1) Fracture of fifth metacarpal bone Assessment & Plan: POD #2 s/p 5th MCP fx ORIF and distal wound I&D -Cont. strict elevation of R hand -IV abx as per Dr. Monsivais -keep immobilized in short arm splint, NWB RUE -orthopedically clear for d/c to home today -f/u in office within 7-10 days -above d/w Dr. Gregorio in agreement Status: Acute
[2018-08-06 16:06] VITALS: PULSE 92; RESP 18
[2018-08-06 18:28] VITALS: BP 152/90; TEMP 98.5; O2SAT 95
--- NOTE | 2018-08-07 14:04 | VASCULAR ---
Procedure: Ultrasound and fluoroscopically placed Right upper extremity PICC. Clinical indication: Long-term IV antibiotics. Technique: The relative risks and indications of the procedure were explained to the patient and written informed consent obtained. The patient was placed supine on the angiographic table and the right arm prepped and draped in the usual sterile fashion. A tourniquet was applied to the right axilla. 1% lidocaine was used to anesthetize the skin and soft tissues at the puncture site above the elbow. The right basilic vein was punctured under direct ultrasound guidance with a micropuncture set. A permanent image was stored. A 0.018 guidewire was advanced centrally and used to measure the length to the SVC/RA junction. A 4 [place] single-lumen PICC, size 45 cm, was advanced to the SVC/RA junction under fluoroscopic guidance. The catheter was flushed and secured. The patient tolerated the procedure well. Postprocedure chest image was obtained to ensure location of the catheter tip at the SVC right atrial junction. Impression: Ultrasound and fluoroscopically placed right upper extremity PICC. A 4 [place]ese single-lumen PICC, size 45 cm was advanced to the SVC/RA junction. PICC ready for use.
--- NOTE | 2018-08-18 13:28 | PQF ---
PROVIDER RESPONSE TEXT: Open fracture REVIEWER QUERY TEXT: Fracture Specificity A fracture is noted in the Medical Record. Please specify if the fracture was open or closed. -- The patient's Clinical Indicators include: Discharge Summary documented [facility] consult for open fracture Query created by: Ibis Estrada on 08/07/2018 4:29 PM Electronically signed by: Sarwat Venegas 08/18/2018 1:25 PM
== END 2018-08-06 18:35 | disposition home or self-care (01) | DRG 513 ==
LOC: H.ER 12:45 → H.ERHOLD 16:48 → H.MEDSURG1 18:09
PROVIDERS: ADMIT Internal Medicine; ATTEND Internal Medicine
PROC: 0PSPXZZ Reposition Right Metacarpal, External Approach (ICD-10-PCS; 2018-08-02)
PROC: 0J9J0ZZ Drainage of Right Hand Subcutaneous Tissue and Fascia, Open Approach (ICD-10-PCS; principal; 2018-08-02 12:30)
PROC: 0PSP04Z Reposition Right Metacarpal with Internal Fixation Device, Open Approach (ICD-10-PCS; 2018-08-04)
PROC: 02H633Z Insertion of Infusion Device into Right Atrium, Percutaneous Approach (ICD-10-PCS; 2018-08-05)
DX: S62.318A Displaced fracture of base of other metacarpal bone, initial encounter for closed fracture (principal); L02.511 Cutaneous abscess of right hand; S61.258A Open bite of other finger without damage to nail, initial encounter; L03.011 Cellulitis of right finger; E03.9 Hypothyroidism, unspecified; Z87.891 Personal history of nicotine dependence; S61.411A Laceration without foreign body of right hand, initial encounter; Y04.1XXA Assault by human bite, initial encounter; R03.0 Elevated blood-pressure reading, without diagnosis of hypertension; Y04.0XXA Assault by unarmed brawl or fight, initial encounter